=== PATIENT | male | born 1975 | race African-American/Black ===

== ENCOUNTER 2017-07-15 17:00 | Emergency (ER) | payer OTHER, MEDICAID | END 2017-07-15 19:33 | disposition home or self-care (01) | LOC: E/R 17:00 → FTE 19:33 | DX: S52.252A Displaced comminuted fracture of shaft of ulna, left arm, initial encounter for closed fracture (principal); I10 Essential (primary) hypertension; Y08.89XA Assault by other specified means, initial encounter | CPT/HCPCS: 29125; 73090; 73562; 99284-25 ==